=== PATIENT | female | born 1980 | race Hispanic/Latino ===

== ENCOUNTER 2017-10-29 11:26 | Observation (INO) | payer MEDICAID, SELFPAY ==
[2017-10-29 11:54] LABS: Hemoglobin 6.3 g/dL (12.0-16.0); Mean Corpuscular Volume 53.5 fL (78.0-98.0); Mean Platelet Volume 9.5 fL (7.4-10.4); Platelet Count 286 thou/uL (130-400); RBC Distribution Width 21.1 % (11.5-14.5); Red Blood Cell (RBC) Count 4.22 mill/uL (4.20-5.40); White Blood Cell (WBC) Count 5.3 thou/uL (4.8-10.8)
[2017-10-29 12:13] LABS: #Basophils 0.1 thou/uL (0.0-0.2); #Eosinphils 0.1 thou/uL (0.0-0.7); #Lymphocytes 1.6 thou/uL (1.20-3.40); #Monocytes 0.3 thou/uL (0.11-0.59); #Neutrophils 3.2 thou/uL (1.40-6.50); %Basophils 1.5 % (0.0-1.0); %Eosinophils 1.8 % (0.0-10.0); %Monocytes 5.3 % (0.0-10.0); %Neutrophils 61.4 % (42.0-75.0); Anion Gap 8 mmol/L (10-20); Anisocytosis SLIGHT = 6-15 cells (100X) (0-5/hpf); BUN (Urea Nitrogen) 10 mg/dL (7.0-18.7); Calc. Creatinine Clearance 0 mL/min (70-130); Calcium 9.2 mg/dL (7.8-10.44); Carbon Dioxide 24 mmol/L (22-29); Chloride 107 mmol/L (98-107); Estimated GFR-MDRD Greater than 90; Glucose 120 mg/dL (70-105); Hypochromia SLIGHT = 6-15 cells (100X) (0-5/hpf); MDiff Complete? YES; Microcytosis MODERATE=15-30 cells (100X) (0-5/hpf); Ovalocytes SLIGHT = 2-5 cells (100X) (0-1/hpf); PLT Morphology Comment Appears Adequate; Potassium 3.9 mmol/L (3.5-5.1); Sodium 135 mmol/L (136-145); Tear Drops SLIGHT = 2-5 cells (100X) (0-1/hpf)
[2017-10-29 12:25] LABS: Pregnancy Test - Urine (BHCG) Negative (Negative); Pregu Control Background? CLEAR/WHITE (CLR/WHITE); Pregu Control Bar Appear? YES (CONTROL BAR); Specific Gravity 1.017 (1.002-1.036)
[2017-10-29 12:29] LABS: PTT 29.1 SEC (22.9-36.1); Prothrombin Time 13.7 SEC (12.0-14.7)
[2017-10-29] MEDS ORDERED: medroxyPROGESTERone Acetate 5 MG TAB PO SCH (13:15)
--- NOTE | 2017-10-29 13:50 | PDOC.EVN ---
Event Note - Event Note Event Note: Senior Case Manager OBGYN Note @1300: Interim HISTORY AND PHYSICAL Reason for evaluation: HMB and moderate anemia Location: Bed 4 in ED, sent from [facility] HPI: I just received a call from Josue in the ED. He has evaluated and ordered 2 units of PRBCs for Ms Gray. By HX, she is a 37 yo s/p prior BTL with HMB and referred from [facility] for low hemoglobin. her hemoglobin in the ED was 6.3. Prior to my eval of her, 2 units PRBCs have been ordered. Past medical: She has no prior HX of transfusion or other medical issues. Past surgical history: BTL Labs: Platelets are normal and coags are normal by Josue report. Assessment and Plan: HMB and anemia... I have accepted the patient for HYPO DIPPER admit for the blood transfusion (ordered by EM). I have requested she begin oral provera 20mg 1 po TID for now. I have requested a sono and TSH. I will go to bed 4 in ED and evaluate for possible EMB.
--- NOTE | 2017-10-29 13:59 | PDOC.EVN ---
Event Note - Event Note Event Note: PACKAGER MACHINE History and Physical: Patient has been seen at bedside by me and Dr Parmjit To ( Resident). This patient has a full handwritten H&P at bedside....please see that note CC: sent from for HMB x 4 mos and low hgb in clinic. hgb in ED 6.2 ROS: no MEYER, no visual changes, no chest pain, no dizziness Past surgical HX: BTL, CS X 3 OB HX: Living 7 (twins 1) Med HX: none Allergies: None Procedure: EMB performed under clean conditions after betadine prep of the cervix. Tenaculum used on anterior lip. No gross cervical lesions noted. Tissue sent.After verbal informed consent, we obtained 3 passes EMB (I performed) with moserate tissue collected in formulin. Blood transfusion: After reviewing that vitals were stable and she was non-tachycardic, with BP 110 /70...I recommended we not give 2 units and give only 1 unit due to persistent HX of HMB X 4 months. We will give 1 unit PRBC. Labs: GC and CHL PCR also collected. Assessment and Plan: HMB, moderate anemia: 1. 1 unit PRBC 2. Labs 3. Sono 4. GC and Chl collected, with EMB 23 hours obs
[2017-10-29] MEDS ORDERED: Ibuprofen 600 MG TAB PO PRN (14:02)
[2017-10-29] MEDS ORDERED: Acetaminophen 500 MG TAB PO PRN (14:02)
[2017-10-29] MEDS ORDERED: Sodium Chloride 0.9% 1,000 ML IV SCH (14:15)
--- NOTE | 2017-10-29 15:02 | PDOC.EVN ---
Event Note - Event Note Event Note: TSH was normal
[2017-10-29] MEDS: medroxyPROGESTERone Acetate 2.5 MG TAB PO SCH ×2 (16:53→22:07)
[2017-10-29 16:58] VITALS: BMI 34.8
--- NOTE | 2017-10-29 18:31 | ULT ---
PELVIC ULTRASOUND: 10/29/17 HISTORY: Abnormal uterine bleeding. COMPARISON: None. TECHNIQUE: Transabdominal and endovaginal imaging of the pelvis is performed. FINDINGS: Uterus is identified, measuring 6.3 x 9.8 x 11.5 cm. There is diffuse heterogeneity throughout the ut erine myometrium. There does appear to be an ill-defined solid mass in the anterior uterus measuring 2.8 x 3.7 x 3.3 cm. There is a solid echotexture mass, ill-defined likely in the posterior uterus marino suring 3.7 x 3.9 x 2.6 cm. This leiomyoma has a serosal component. Limited evaluation of the endometr ium due to the myometrial masses. neither ovary is appreciated. Nabothian cysts are noted, largest be ing 1.4 x 1.3 x 1.3 cm. No free fluid. IMPRESSION: Multiple uterine leiomyomas. Better interrogation of the uterus with pelvic MRI may be beneficial. POS: SHAAN
--- NOTE | 2017-10-29 19:35 | PDOC.EVN ---
Event Note - Event Note Event Note: Sono report check: Uterus with multiple uterine fibroids. Findings discussed with the patient at 1945
--- NOTE | 2017-10-29 20:01 | PDOC.EVN ---
Event Note - Event Note Event Note: @1950: Patient seen at bedside. Pulse 70s, BPs 130/80s No active vag bleed on perineal inspection (RN in room)....ok for discharge with oral provera burst. RX given and info provided. F/U with [facility] or preferably [facility] in 1 week. Discharge Dictation just completed. Please see discharge dictation for full details
--- NOTE | 2017-10-29 20:23 | DIS ---
DATE OF ADMISSION: 10/29/2017 DATE OF DISCHARGE: 10/29/2017 This patient was placed under observation in the Ex Assistant/Program Director [facility]. PRINCIPAL DIAGNOSES: 1. Heavy menstrual cycles. 2. Moderate anemia, but asymptomatic. 3. Uterine fibroids by ultrasound. HISTORY OF PRESENT ILLNESS: In brief, this is a patient I evaluated earlier on 10/29/2017 around 1300 in the Emergency Department. I was contacted by Josue the emergency room provider to assess this patient for a hemoglobin, which was 6.3. This patient arrived from the [facility] as she was seen there for heavy bleeding and was noted to have a low hemoglobin there, but she was relatively asymptomatic. When I evaluated the patient, she told me that she had a history of heavy bleeding for the last 3-4 months that she has been taking iron supplementation. She denied any headaches, shortness of breath, dizziness or inability to exert herself. PAST MEDICAL HISTORY: Otherwise negative. PAST SURGICAL HISTORY: Significant for BTL and 3 prior C-sections. She had never been treated for abnormal bleeding in the past and she did not have any regular supervising deputy. She did state that her mother had a hysterectomy for " the uterine tumors" and was suspicious that this may be the same thing. HOSPITAL COURSE: When I evaluated her in the ER, the emergency room provider had already ordered 2 units of blood cells based on her hemoglobin even though there was no tachycardia or hypotension noted. After discussion with the emergency room provider, we agreed that we would reduce the amount transfused from 2 units down to 1and she was compensated and in no acute distress. Although she was nontachycardic. We did agree on 1 unit of packed cells in case the bleeding resumed after her discharge/release. I also collected an endometrial biopsy in the emergency room as well as a gonorrhea and chlamydia PCR, although she is at low risk for infection due to being in a stable relationship. We kept the patient throughout most of the day and I evaluated her at bedside at 1950 in room #304. She was doing well, with bleeding greatly reduced after 20 mg of oral Provera was given in the ER. I explained to her the findings of the fibroid and she understood. As discharge medication, we have elected to give her Provera 20 mg 1 p.o. t.i.d. for 3 days as a burst and then 20 mg a day for 5 days. We will also give her her evening dose of provera prior to discharge and she will resume the meds tomorrow as ordered. I have discussed with her that this medication will not prevent future bleeding, but is only meant to be in acute treatment to prevent this episode. She will follow up at [facility] or [facility] to seek either medical management to suppress these periods or definitive hysterectomy planning as she has already required a blood transfusion. As she was afebrile, with a blood pressure of 130s/80s, and a pulse of 70s when I evaluated the patient at [facility], I elected to not repeat another hemoglobin as she was hemodynamically stable. We can recheck the hemoglobin after she equilibrate next week when she presents herself at [facility] or [facility]. For this condition (fibroids and heavy bleeding) I discussed with her treatment options to include medical management, intrauterine device with progesterone, or hysterectomy. I also discussed these findings with the patient's partner/, who is in the room. All questions were answered and the patient was happy to be released home as she desired to go home today. SARAH
[2017-10-29 20:47] VITALS: BP 139/65; TEMP 97.3
--- NOTE | 2017-10-31 09:41 | PDOC.EVN ---
Event Note - Event Note Event Note: Post-discharge lab checK: Path from EMB checked 10/31/17 at 0935: Endocervical tissue, scant endometrial tissue identified. GC and Chl still pending results
--- NOTE | 2017-11-01 08:22 | PDOC.EVN ---
Event Note - Event Note Event Note: Postdischarge lab check: Gc and Chl still not back.
[2017-11-01 23:15] LABS: Chlamydia by PCR Not Detected (NotDetected); GC by PCR Not Detected (NotDetected)
--- NOTE | 2017-11-03 12:31 | PDOC.EVN ---
Event Note - Event Note Event Note: GC and chlamydia both return negative.
== END 2017-10-29 22:25 | disposition home or self-care (01) ==
LOC: ERS 11:26 → 3SE 14:36
PROVIDERS: ADMIT Obstetrics & Gynecology; ATTEND Obstetrics & Gynecology
DX: D25.9 Leiomyoma of uterus, unspecified (principal); D64.9 Anemia, unspecified; Z98.890 Other specified postprocedural states
CPT/HCPCS: 36415; 36430; 76856; 80048; 81025; 84443; 85025; 85060; 85610; 85730; 86850; 86900; 86901; 87491; 87591; 88305; P9016

== ENCOUNTER 2018-03-06 10:35 | Outpatient (CLI) | payer OTHER ==
[2018-03-06 11:59] LABS: BHCG - Serum Negative (NEGATIVE); Pregs Control Background? CLEAR/WHITE (CLR/WHITE); Pregs Control Bar Appear? YES (CONTROL BAR)
[2018-03-06 12:57] LABS: Hemoglobin 9.1 g/dL (12.0-16.0); Mean Corpuscular HGB CONC 28.9 g/dL (32.0-36.0); Mean Corpuscular Hemoglobin 16.2 pg (27.0-31.0); Mean Platelet Volume 9.8 fL (7.4-10.4); Platelet Count 321 thou/uL (130-400); RBC Distribution Width 19.8 % (11.5-14.5); White Blood Cell (WBC) Count 7.3 thou/uL (4.8-10.8)
== END 2018-03-06 10:36 | disposition home or self-care (01) ==
LOC: LABBT 10:35
PROVIDERS: ATTEND Obstetrics & Gynecology
DX: Z01.812 Encounter for preprocedural laboratory examination (principal); N93.8 Other specified abnormal uterine and vaginal bleeding
CPT/HCPCS: 84703; 85027; 86850; 86870; 86900; 86901; 86905

== ENCOUNTER 2018-03-11 14:48 | Outpatient (CLI) | payer OTHER | END 2018-03-11 14:49 | disposition home or self-care (01) | LOC: LABBT 14:48 | PROVIDERS: ATTEND Obstetrics & Gynecology | DX: Z01.812 Encounter for preprocedural laboratory examination (principal); N93.8 Other specified abnormal uterine and vaginal bleeding | CPT/HCPCS: 86850; 86900; 86901; 86922 ==

== ENCOUNTER 2018-03-12 07:12 | Observation (INO) | payer OTHER ==
[2018-03-06 11:08] VITALS: BMI 37.0
--- NOTE | 2018-03-06 17:58 | HP ---
REASON FOR ADMISSION: Fibroids and menorrhagia. SCHEDULED PROCEDURE: Total laparoscopic hysterectomy with bilateral salpingectomy. HISTORY OF PRESENT ILLNESS: Ms. Fabiana Gray is a 37-year-old 6, para 6, who has been my patient for quite some time. She continues to have menorrhagia, dysfunctional uterine bleeding, and has required transfusion in the past. She has a benign biopsy and desires definitive surgical management. HPLC CHEMIST HISTORY: x3, x3. PAST MEDICAL HISTORY: Anemia. The patient has a positive RPR and has a history of serofast syphilis. PAST SURGICAL HISTORY: C-sections. ALLERGIES: ADVIL. MEDICATIONS: Provera 10 mg b.i.d. SOCIAL HISTORY: Denies drug abuse. Reports tobacco use. FAMILY HISTORY: Noncontributory. REVIEW OF SYSTEMS: Noncontributory. PHYSICAL EXAMINATION: GENERAL: female. VITAL SIGNS: 5 feet 4 inches, 204, BMI 35. Blood pressure 120/74. HEENT: Within normal limits. LUNGS: Clear to auscultation bilaterally. HEART: Regular rate and rhythm. S1 and S2 bilaterally. ABDOMEN: Soft and nontender. Uterus is enlarged, irregular, 14-week size. No adnexal masses. Cervix is parous and normal appearing. Endometrial biopsy in the office was benign. IMPRESSION: Dysfunctional uterine bleeding with history of anemia, menorrhagia, and fibroids. PLAN: Total laparoscopic hysterectomy with bilateral salpingectomy and in-bag morcellation with GelPOINT technique at [facility] on 03/12. We will use appropriate antibiotic and DVT prophylaxis. Job ID: [id number]
[2018-03-12] MEDS ORDERED: Bupivacaine HCl 0.5%/Epinephrine 1:200,000/PF 30 ml Vial ONE (07:39)
[2018-03-12] MEDS ORDERED: CeleCOXIB 100 MG CAP ONE (08:08)
[2018-03-12] MEDS ORDERED: Gabapentin 300 MG CAP ONE (08:08)
[2018-03-12] MEDS ORDERED: CEFAZOLIN 2 GM/50 ML BAG ONE (08:09)
[2018-03-12] MEDS ORDERED: Famotidine/PF 20 mg/2ml Vial ONE (08:09)
[2018-03-12] MEDS ORDERED: Fentanyl 250 MCG/5 ML VIAL ONE (08:15)
[2018-03-12] MEDS ORDERED: Midazolam HCl 2 mg/2 ml Vial ONE (08:29)
[2018-03-12] MEDS ORDERED: Fentanyl 100 MCG/2 ML VIAL ONE (11:04)
[2018-03-12] MEDS ORDERED: Ondansetron HCl/PF 4 MG/2 ML Vial IVP PRN (11:08)
[2018-03-12] MEDS ORDERED: Promethazine HCl 25 MG/ML VIAL IM PRN ×2 (11:08→13:16)
[2018-03-12] MEDS ORDERED: Promethazine HCl 25 MG/ML VIAL SLOW IVP PRN (11:08)
[2018-03-12] MEDS ORDERED: Ondansetron PF 4 MG/2 ML Vial IVP PRN (13:16)
[2018-03-12] MEDS ORDERED: Morphine 2 MG/ML SYRINGE SLOW IVP PRN (13:16)
[2018-03-12] MEDS ORDERED: Simethicone Chewable 80 MG TAB PO PRN (13:16)
[2018-03-12] MEDS ORDERED: diphenhydrAMINE 25 MG CAP PO PRN (13:16)
[2018-03-12] MEDS ORDERED: Morphine 4 MG/ML VIAL SLOW IVP PRN (13:16)
[2018-03-12] MEDS ORDERED: Zolpidem Tartrate 5 MG TAB PO PRN (13:16)
--- NOTE | 2018-03-12 14:52 | OP ---
DATE OF PROCEDURE: 03/12/2018 PREOPERATIVE DIAGNOSES: Dysfunctional uterine bleeding, menorrhagia, and fibroids with a 14-week size uterus. POSTOPERATIVE DIAGNOSES: Dysfunctional uterine bleeding, menorrhagia, and fibroids with a 14-week size uterus. PROCEDURES PERFORMED: Total laparoscopic hysterectomy with bilateral salpingectomy. STORE OPERATIONS MANAGER: Malaika Chew DO ANESTHESIOLOGIST: Marcial Rogers MD ESTIMATED BLOOD LOSS: 50 mL. MEDICATIONS: 2 g Ancef. PREINCISION: DVT prophylaxis with SCDs. OPERATIVE FINDINGS: 1. Irregular size 14-week uterus with multiple fibroids. 2. Normal-appearing tubes, status post mid-segment salpingectomy bilaterally. 3. Normal-appearing ovaries. 4. Hemostasis with clear urine. COUNTS: Correct at the end of the procedure. DISPOSITION: Recovery room in good condition. DESCRIPTION OF PROCEDURE: After obtaining proper informed consent, the patient was taken to the operating room where general endotracheal anesthesia was achieved without difficulty. The patient was prepped and draped in dorsal lithotomy position in Rehan stirrups. A weighted speculum was placed in the vagina. The cervix was identified and grasped with single-tooth tenaculum at 12 o'clock. Uterus was sounded to 12 cm. Rossana manipulator with a 10-cm obturator and a 4-cm vaginal delineation cup was placed without difficulty. Montes catheter was placed. Circus Hand changed the gloves and turned attention to the abdominal portion of the procedure. 10 mL of Marcaine was injected 2 cm above the umbilicus. Veress needle was placed inside the abdominal cavity about 2 cm above the umbilicus and insufflated carbon dioxide to a max pressure of 15. Once this was achieved, a 12-mm skin incision was made and a 12-mm non-cutting trocar was introduced into the abdominal cavity. Confirmation of entry into the peritoneal cavity was noted. No trauma to the underlying viscera was noted. The patient was placed in steep Trendelenburg position. The right and left lateral trocars lateral to epigastric vessels were placed under direct visualization as well as an 11 mm dietitian assistant trocar in the right upper quadrant. Skin incision at this trocar just above the umbilicus was enlarged to approximately 2.5 cm and dissection was carried down to the fascia, where the fascia was incised at the level of the trocar for the same distance. Peritoneum was palpated underneath and no adhesions were noted. The small Cedric O was placed with a GelPOINT trocar facilitation device after placing the applied medical retrieval bag in the abdominal cavity. The abdomen was re-insufflated with carbon dioxide and the 12-mm camera port was placed through the GelPOINT. Da Tristin robot was docked with monopolar scissors in the continuous wave operator's right hand and bipolar fenestrated forceps in the left. Extensive omental adhesions to the anterior abdominal wall from below the umbilicus down to just above the symphysis pubis were taken down bluntly and sharply using cautery. Good hemostasis was noted. No evidence of injury to any viscera was noted. On the patient's left, the distal portion of the fallopian tube was excised from the mesosalpinx and removed from the abdominal cavity. The utero-ovarian ligament was coagulated and transected through the broad, the round, and down to the level just above the internal cervical os. Anteriorly, extensive adhesions from the patient's previous C-sections of the bladder and peritoneum and the vesicouterine area was noted and was taken down with sharp technique, taking care to avoid injury to the bladder. The bladder was backfilled several times throughout the surgical process to help identify it and avoid injury. The bladder was dissected off the lower uterine segment and cervix and upper vagina. Skeletonization of the vessels on the left side were carried out and these were coagulated. Ureters were noted to be well lateral to the area of surgical coagulation and transection. Attention was turned to the patient's right, where the identical procedure was carried out. Again, these adhesions were encountered and the bladder was inflated and deflated several times to facilitate avoidance of injury. The fallopian tube was excised. Utero-ovarian coagulated and transected broad, round, and down to the level of the internal cervical os. Skeletonization of the vessels was carried out on this side. At this point in time, the uterus was anteverted and the posterior cul-de-sac was identified. Bowel was held out of the way, and monopolar scissors were used to take down the peritoneum and then the paracervical and paravaginal tissue posteriorly. The vagina was entered at 6 o'clock and extended from 6 to 3 and 6 to 9. Attention was turned anteriorly and the vagina was entered at 12 o'clock and extended from 12 to 3 and 12 to 9 with the final bites on the side being the corners of the vagina, assuring good hemostasis. After the specimen was amputated, the obturator balloon was taken down and it was taken off the uterine manipulator and placed in the right upper quadrant for retrieval. The vaginal occlusion balloon from the Rossana was placed in the vagina to maintain pneumoperitoneum. Suction and irrigation were carried out. Good hemostasis was noted and the vaginal cuff was closed from right to left and then back to right in a 2-layer technique using a running continuous 0 PDS suture lock. Suction and irrigation was carried out and good hemostasis was noted. Tisseel was applied across all surgical surfaces. The uterus was retrieved from the right upper quadrant and placed in the pelvis. The applied medical tissue retrieval bag was then placed in the pelvis and stay sutures on it were cut. The uterus was placed inside the bag and then it was brought out through the GelPOINT after removing the Da Tristin instruments, undocking, and desufflating the abdomen of carbon dioxide. The tissue retrieval bag was rolled down until it was taut against the skin and the uterus was morcellated over approximately 25 minutes using extracorporeal technique to avoid spillage of any contents intra-abdominally. Once the uterus was completely removed, the retrieval bag was removed. The small Cedric O was removed. The fascia identified and closed using a running continuous 0 PDS suture. The skin was reapproximated x4 using 4-0 Monocryl and Dermabond after removing all trocars. The vagina was inspected and noted to be intact and dry. Urine was clear. The patient was awakened, extubated, and taken to the recovery room in good condition. Counts were correct. Job ID: [id number]
[2018-03-12] MEDS ORDERED: Acetaminophen 1,000 MG in Premix Bag 1 BAG IVPB SCH (15:00)
[2018-03-12] MEDS ORDERED: Lidocaine 1% PF 5 ML VIAL ONE (18:21)
[2018-03-12] MEDS ORDERED: PROPOFOL 200 MG/20 ML VIAL ONE (18:21)
[2018-03-12] MEDS ORDERED: Ondansetron PF 4 MG/2 ML Vial ONE (18:21)
[2018-03-12] MEDS: Sodium Chloride 0.9% 1,000 ML IV SCH ×2 (18:21→22:36)
[2018-03-12] MEDS ORDERED: Glycopyrrolate 0.2 MG/ML 5 ML SYRINGE ONE (18:21)
[2018-03-12] MEDS ORDERED: Dexamethasone 20 MG/5 ML VIAL ONE (18:21)
[2018-03-12] MEDS ORDERED: Sterile Water 10 ML VIAL ONE (18:21)
[2018-03-12] MEDS ORDERED: Vecuronium 10 MG VIAL ONE (18:21)
[2018-03-13] MEDS: Acetaminophen 1,000 MG in Premix Bag 1 BAG IVPB SCH ×3 (00:44→10:06)
[2018-03-13] MEDS: HYDROcodone/Acetaminophen 10/325 mg Tablet PO PRN ×2 (06:14→07:47)
[2018-03-13] MEDS: Sodium Chloride 0.9% 1,000 ML IV SCH (06:16)
[2018-03-13 06:24] LABS: Hemoglobin 8.5 g/dL (12.0-16.0); Mean Corpuscular HGB CONC 29.6 g/dL (32.0-36.0); Mean Corpuscular Hemoglobin 16.6 pg (27.0-31.0); Mean Corpuscular Volume 55.9 fL (78.0-98.0); Mean Platelet Volume 8.5 fL (7.4-10.4); Platelet Count 342 thou/uL (130-400); RBC Distribution Width 19.2 % (11.5-14.5); Red Blood Cell (RBC) Count 5.14 mill/uL (4.20-5.40); White Blood Cell (WBC) Count 8.5 thou/uL (4.8-10.8)
[2018-03-13] MEDS ORDERED: HYDROcodone/Acetaminophen 10/325 mg Tablet PO PRN (09:15)
--- NOTE | 2018-03-13 10:54 | DIS ---
DATE OF ADMISSION: 03/12/2018 DATE OF DISCHARGE: 03/13/2018 PRINCIPAL AND HOSPITAL PROCEDURE: Total laparoscopic hysterectomy with bilateral salpingectomy and intracorporeal morcellation with specimen retrieval bag. SUMMARY OF HOSPITAL COURSE: The patient underwent the aforementioned procedure at approximately 1100 hours on 03/12. Preoperative hematocrit was 31%. The patient had an unremarkable postoperative course. OBJECTIVE: VITAL SIGNS: Temperature 98.2, T-max 98.6, pulse 66, respirations 16, and blood pressure 124/78. Urine output 900 mL postoperatively. HEART: Regular rate and rhythm. LUNGS: Clear to auscultation bilaterally. ABDOMEN: Soft and nontender. Positive bowel sounds. All incisions are intact and dry. : Perineum dry. EXTREMITIES: No clubbing, cyanosis, or edema. LABORATORY DATA: Postoperative hematocrit is 28.7% with a normal white count and normal platelet count. IMPRESSION: The patient is doing well, less than 24-hours status post total laparoscopic hysterectomy. PLAN: Discharged home. DISCHARGE MEDICATIONS: Include [place], which was sent from my office preoperatively and the patient is already obtained. FOLLOWUP: We will follow up at [facility] [place] in 6 weeks. Pathology pending. Job ID: [id number]
[2018-03-13 11:53] VITALS: BP 127/58; TEMP 98.2
== END 2018-03-13 15:39 | disposition home or self-care (01) ==
LOC: SDC 07:12 → EDSTATUS 10:30 → INTOOBSV 12:37 → 3SE 12:37
PROVIDERS: ADMIT Obstetrics & Gynecology; ATTEND Obstetrics & Gynecology
PROC: 0UT94ZZ Resection of Uterus, Percutaneous Endoscopic Approach (ICD-10-PCS; principal; 2018-03-12)
PROC: 0UT74ZZ Resection of Bilateral Fallopian Tubes, Percutaneous Endoscopic Approach (ICD-10-PCS; 2018-03-12)
DX: N72 Inflammatory disease of cervix uteri (principal); N80.0 Endometriosis of uterus; D25.9 Leiomyoma of uterus, unspecified; N83.8 Other noninflammatory disorders of ovary, fallopian tube and broad ligament; D64.9 Anemia, unspecified; Z88.6 Allergy status to analgesic agent; Z98.890 Other specified postprocedural states
CPT/HCPCS: 36415; 85027; 88307; 96365; 96374; 96375; A4216; G0378; J0131; J0670; J1100; J2001; J2250; J2270; J2405; J2704; J3010; S0028